=== PATIENT | female | born 1955 | race Caucasian/White ===

== ENCOUNTER 2016-09-21 01:29 | Emergency (ER) | payer OTHER ==
[~2016-09-21] VITALS: Ht 154.9 cm; Wt 88.9 kg
[~2016-09-21 01:29] MED LIST: ABILIFY10 MG PO; HYDROCHLOROTHIA25 MG PO; LOPRESSOR25 MG PO; MOTRIN600 MG PO; TAMIFLU75 MG PO; ZOFRAN ODT4 MG PO
[2016-09-21] MEDS ORDERED: FLEXERIL10 MG PO (02:48)
[2016-09-21] MEDS ORDERED: PERCOCET 5/31 TABLET PO (02:48)
[2016-09-21] MEDS ORDERED: MOTRIN800 MG PO (02:48)
[2016-09-21 02:57] VITALS: BP 140/78
== END 2016-09-21 02:58 | disposition home or self-care (01) ==
LOC: EME 01:29
DX: M54.16 Radiculopathy, lumbar region (principal); I10 Essential (primary) hypertension; Z87.891 Personal history of nicotine dependence
CPT/HCPCS: 99281; 99284

== ENCOUNTER 2016-09-30 15:26 | Emergency (ER) | payer OTHER ==
[~2016-09-30] VITALS: Ht 154.9 cm; Wt 88.2 kg
[~2016-09-30 15:26] MED LIST changes: +FLEXERIL10 MG PO; +MOTRIN800 MG PO; +PERCOCET 5/31 TABLET PO
[2016-09-30 16:26] LABS: BASOPHIL COUNT 0.1 K/uL (0-0.1); EOSINOPHIL (%) 1.1 % (0-5); EOSINOPHIL COUNT 0.1 K/uL (0-0.3); IMMATURE GRANULOCYTE (%) 0.3 % (0.0-0.7); INSTRUMENT ABS NEUTROPHIL CT 9.3 K/uL; LYMPHOCYTE COUNT 1.8 K/uL (1.0-2.8); MCH 30.1 PG (29.0-34.0); MCHC 32.3 G/DL (30.0-36.0); MCV 93.2 FL (83-99); MEAN PLAT.VOLUME 10.4 uM^3 (9.5-12.4); MONOCYTE (%) 8.5 % (3-12); MONOCYTE COUNT 1.1 K/uL (0-0.8); NEUTROPHIL (%) 74.9 % (45-76); NEUTROPHIL COUNT 9.3 K/uL (1.8-6.4); PLATELET COUNT 311 K/uL (156-360); RBC DIS.WIDTH-CV 13.5 % (11.8-14.6); RBC DIS.WIDTH-SD 45.7 % (39-53); RED BLOOD COUNT 4.29 M/uL (3.80-5.20); WHITE BLOOD COUNT 12.5 K/uL (4.1-10.2)
[2016-09-30 16:35] LABS: CHLORIDE 103 mEq/L (99-109); POTASSIUM 3.6 mEq/L (3.7-5.4)
[2016-09-30 16:36] LABS: SODIUM 140 mEq/L (136-147)
[2016-09-30 16:37] LABS: GLUCOSE 94 mg/dL (70-99)
[2016-09-30 16:39] LABS: ANION GAP 13 MEQ/L (2-14)
[2016-09-30 16:41] LABS: GFR ESTIMATE (CALCULATED) > 59 mL/min/
[2016-09-30 16:42] LABS: UREA NITROGEN (BUN) 17 mg/dL (9-23)
[2016-09-30] MEDS ORDERED: COGENTIN (17:22)
[2016-09-30] MEDS ORDERED: LOPRESSOR (17:22)
[2016-09-30] MEDS ORDERED: ABILIFY (17:22)
[2016-09-30] MEDS ORDERED: VITAMIN D3 (17:23)
[2016-09-30] MEDS ORDERED: VITAMIN B12 (17:23)
[2016-09-30] MEDS ORDERED: CALICUM (17:23)
[2016-09-30] MEDS ORDERED: HYDROCHLOROTHIAZIDE (17:23)
[2016-09-30] MEDS ORDERED: VIBRAMYCIN100 MG PO (19:05)
[2016-09-30 19:31] VITALS: BP 117/93
== END 2016-09-30 19:48 | disposition home or self-care (01) ==
LOC: EME 15:26 → EXP 15:26
DX: L03.115 Cellulitis of right lower limb (principal); L03.116 Cellulitis of left lower limb; I10 Essential (primary) hypertension; Z87.891 Personal history of nicotine dependence
CPT/HCPCS: 80048; 81003; 83605; 85025; 99281; 99285

== ENCOUNTER 2016-10-02 09:05 | Emergency (ER) | payer OTHER ==
[~2016-10-02] VITALS: Ht 154.9 cm; Wt 86.2 kg
[~2016-10-02 09:05] MED LIST changes: +ABILIFY; +CALICUM; +COGENTIN; +HYDROCHLOROTHIAZIDE; +LOPRESSOR; +VIBRAMYCIN100 MG PO; +VITAMIN B12; +VITAMIN D3
[2016-10-02 10:09] VITALS: BP 134/77
== END 2016-10-02 10:10 | disposition home or self-care (01) ==
LOC: EME 09:05
DX: L03.115 Cellulitis of right lower limb (principal); L03.116 Cellulitis of left lower limb; I10 Essential (primary) hypertension; Z87.891 Personal history of nicotine dependence
CPT/HCPCS: 99281; 99283

== ENCOUNTER 2017-03-08 18:55 | Emergency (ER) | payer OTHER ==
[~2017-03-08] VITALS: Ht 152.4 cm; Wt 90.1 kg
[2017-03-08] MEDS ORDERED: SKELAXIN800 MG PO (20:19)
[2017-03-08 20:30] VITALS: BP 155/84
== END 2017-03-08 20:57 | disposition home or self-care (01) ==
LOC: EME 18:55
DX: M54.16 Radiculopathy, lumbar region (principal); I10 Essential (primary) hypertension; Z87.891 Personal history of nicotine dependence
CPT/HCPCS: 99281; 99284; J1885; J7512